=== PATIENT | female | born 1985 | race Caucasian/White ===

== ENCOUNTER 2017-12-20 13:39 | Emergency (ER) | payer BC ==
--- NOTE | 2017-12-20 14:17 | EDM.PDOC ---
ED HPI GENERAL MEDICAL PROBLEM - General Chief Complaint: [employer] Problem Stated Complaint: side pain Time Seen by Provider: 12/20/17 14:10 Source of Information: Reports: Patient History Limitations: Reports: No Limitations - History of Present Illness INITIAL COMMENTS - FREE TEXT/NARRATIVE: Patient presents to the emergency department today after eating with her family and having sudden onset of right lower quadrant pain. The pain radiates from the umbilicus back to the right flank area. If the patient presses on her right lower abdomen she is able to get relief when she releases the pain intensifies. She does have some nausea with this as well. Denies feeling any contractions or leaking amniotic fluid. She has noted a min of 10 movements an hour. No fever, chest pain, or SOB. Onset: Sudden Onset Date: 12/20/17 Quality: Reports: Pressure Associated Symptoms: Reports: No Other Symptoms Right Lower Abdomen Pain Score (Numeric/FACES): 9 - Related Data Allergies Allergy/AdvReac Type Severity Reaction Status Date / Time No Known Allergies Allergy Verified 12/20/17 14:07 Home Meds: Home Meds PNV95/Ferrous Fumarate/FA [ Tablet] 1 tab PO DAILY 12/20/17 [History] ED ROS GENERAL - Review of Systems Review Of Systems: See Below Constitutional: Reports: No Symptoms. Denies: Fever, Chills, Malaise, Weakness , Fatigue, Night Sweats, Diaphoresis, Decreased Appetite HEENT: Reports: No Symptoms Respiratory: Reports: No Symptoms Cardiovascular: Reports: No Symptoms Endocrine: Reports: No Symptoms GI/Abdominal: Reports: Abdominal Pain (RLQ) Musculoskeletal: Reports: No Symptoms Skin: Reports: No Symptoms ED EXAM, GI/ABD - Physical Exam Exam: See Below Exam Limited By: No Limitations General Appearance: Alert, WD/WN, No Apparent Distress Respiratory/Chest: No Respiratory Distress, Lungs Clear, No Accessory Muscle Use , Chest Non-Tender Cardiovascular: Normal Peripheral Pulses, Regular Rate, Rhythm, No Edema, No Gallop GI/Abdominal Exam: Normal Bowel Sounds, Non-Tender, Other (pt is 29 week twin gestation ) Extremities: Normal Inspection Neurological: Alert, Oriented Psychiatric: Normal Affect, Normal Mood Skin Exam: Warm, Dry, Intact, Normal Color Comments: 29 weeks ; Doppler tones baby A: 154 B: 159 Course - Vital Signs Last Recorded V/S: Last Vital Signs Temp 36.7 C 03/24/18 14:03 Pulse 96 12/20/17 15:15 Resp 16 12/20/17 14:03 BP 131/76 12/20/17 15:15 Pulse Ox 96 12/20/17 15:15 - Orders/Labs/Meds Labs: Laboratory Tests 12/20/17 12/20/17 12/20/17 Range/Units 14:30 14:45 14:45 WBC 9.7 (4.0-10.0) x10^3/uL RBC 4.08 (4.00-5.50) x10^6/uL Hgb 12.4 (12.0-16.0) g/dL Hct 38.0 (33.0-47.0) % MCV 93.1 H (78.0-93.0) fL MCH 30.4 (26.0-32.0) pg MCHC 32.6 (32.0-36.0) g/dL RDW Coeff of Deborah 13.5 (10.0-15.0) % Plt Count 338 (130-400) x10^3/uL Neut % (Auto) 70.8 (50.0-80.0) % Lymph % (Auto) 20.4 L (25.0-50.0) % [place] % (Auto) 7.4 (2.0-11.0) % Eos % (Auto) 1.2 (0.0-4.0) % Baso % (Auto) 0.2 (0.2-1.2) % Sodium 141 (136-145) mmol/L Potassium 3.9 (3.5-5.1) mmol/L Chloride 107 (98-107) mmol/L Carbon Dioxide 25 (21-32) mmol/L BUN 9 (7-18) mg/dL Creatinine 0.6 (0.55-1.02) mg/dL Est Cr Clr Drug Dosing 118.39 mL/min Estimated GFR (MDRD) > 60 Glucose 94 (74-106) mg/dL Calcium 8.7 (8.5-10.1) mg/dL Corrected Calcium 10.06 (8.5-10.1) mg/dL Total Bilirubin 0.2 (0.2-1.0) mg/dL AST 18 (15-37) U/L ALT 17 (14-59) U/L Alkaline Phosphatase 98 (46-116) U/L C-Reactive Protein 1.6 H (<=0.9) mg/dL Total Protein 6.3 L (6.4-8.2) g/dL Albumin 2.3 L (3.4-5.0) g/dL Globulin 4.0 Albumin/Globulin Ratio 0.58 Urine Color Dark yellow H (YELLOW) Urine Appearance Turbid H (CLEAR) Urine pH 7.0 (5.0-8.0) Ur Specific [place] 1.025 Urine Protein 30 H (NEGATIVE) mg/dL Urine Glucose (UA) Negative (NEGATIVE) mg/dL Urine Ketones Trace H (NEGATIVE) mg/dL Urine Occult Blood Negative (NEGATIVE) Urine Nitrite Negative (NEGATIVE) Urine Bilirubin Negative (NEGATIVE) Urine Urobilinogen 0.2 (0.2) EU/dL Ur Leukocyte Esterase Negative (NEGATIVE) Urine RBC 0-5 (NOT SEEN) /HPF Urine WBC 0-5 (NOT SEEN) /HPF Ur Squamous Epith Cells Many H (NEGATIVE) /HPF Amorphous Sediment Many Urine Bacteria Moderate H (NEGATIVE) /HPF Urine Mucus Few H (NEGATIVE) /LPF - Re-Assessments/Exams Free Text/Narrative Re-Assessment/Exam: 12/20/17 15:29 Pain is down to a 0-1. After she went to the bathroom she noticed a huge relief. Departure - Departure Time of Disposition: 15:55 Disposition: Home, Self-Care 01 Condition: Good Clinical Impression: Abdominal pain during Qualifiers: Trimester: second trimester Qualified Code(s): O26.892 - Other specified related conditions, second trimester; R10.9 - Unspecified abdominal pain; R10.9 - Unspecified abdominal pain - Discharge Information Instructions: Abdominal Pain During , [id number] Referrals: PCP,None [Primary Care Provider] - Forms: ED Department Discharge Additional Instructions: 1. Rest 2. Symptoms arise again is advised to go directly to [place] to have ultrasound completed 3. Contact [employer] on Friday and inform her of your emergency room visit 4. Activity and diet as tolerated - Assessment/Plan Assessment:: 1. Sudden onset of RLQ pain - r/o ovarian torsion - r/o appendicitis - r/o Gas bubble Plan: 1. Labs completed in ER today with results reviewed with the pt 2. Doppler completed for heart tones 3. Anti-nausea medication offered for nausea relief. currently refusing 4. Pain has reduced to 0-1 pain level and pt feels much better. 5. Consult completed with OBGYN ux consultant at [facility]. She recommends no other imaging or labs needed today with symptoms resolving. The patient has similar symptoms again she needs to go to a facility to with ultrasound to rule out ovarian torsion.
[2017-12-20 15:12] LABS: CHLORIDE,CL 107 mmol/L (98-107); SODIUM,NA 141 mmol/L (136-145)
== END 2017-12-20 15:56 | disposition home or self-care (01) ==
LOC: VM.ED 13:39
DX: O26.892 Other specified pregnancy related conditions, second trimester (principal); R10.31 Right lower quadrant pain; Z3A.29 29 weeks gestation of pregnancy
CPT/HCPCS: 36415; 80053; 81001; 85025; 86140; 99284

== ENCOUNTER 2023-05-19 09:29 | Day surgery (SDC) | payer OTHER ==
[~2023-05-19 09:29] MED LIST: Lactated Ringers 1,000 ML IV SCH
[2023-05-19] MEDS ORDERED: Propofol 200 MG/20 ML SDV ONE (10:32)
[2023-05-19] MEDS ORDERED: fentaNYL 100 MCG/2 ML SDV ONE (10:32)
== END 2023-05-19 12:05 | disposition home or self-care (01) ==
LOC: VM.SDS 09:29
PROVIDERS: ATTEND Surgery
DX: K21.00 Gastro-esophageal reflux disease with esophagitis, without bleeding (principal); G43.909 Migraine, unspecified, not intractable, without status migrainosus; E66.01 Morbid (severe) obesity due to excess calories; Z79.899 Other long term (current) drug therapy; Z68.36 Body mass index [BMI] 36.0-36.9, adult
CPT/HCPCS: 00731; J2704; J3010; J7120